=== PATIENT | female | born 1970 | race Caucasian/White ===

== ENCOUNTER → 2021-02-03 10:07 | Outpatient (BNVA) | payer MEDICARE, SELFPAY | PROVIDERS: PCP Internal Medicine; Visit Provider Internal Medicine Rheumatology | DX: M06.041 Rheumatoid arthritis without rheumatoid factor, right hand (principal); M06.042 Rheumatoid arthritis without rheumatoid factor, left hand; M15.9 Polyosteoarthritis, unspecified; Z79.899 Other long term (current) drug therapy; Z11.59 Encounter for screening for other viral diseases; Z11.1 Encounter for screening for respiratory tuberculosis; E11.42 Type 2 diabetes mellitus with diabetic polyneuropathy; Z79.84 Long term (current) use of oral hypoglycemic drugs | CPT/HCPCS: 99214 ==

== ENCOUNTER 2021-02-03 12:22 | Outpatient (CLI) | payer MEDICARE, OTHER, SELFPAY ==
--- NOTE | 2021-02-03 12:38 | XR_ITS ---
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 Minimal degenerative changes in the IP joints as well as the first and fifth MP joints. Normal soft tissues. Anterior and posterior heel spurs. XR/XR foot LT min 3V* 31684 IMPRESSION: 1. Minimal degenerative changes. No fracture or other significant finding.
--- NOTE | 2021-02-03 12:38 | XR_ITS ---
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 There are mild degenerative changes in the IP joints. No sign of th e cortical erosion or periarticular demineralization. Normal soft tissues. XR/XR hand RT min 3V* 13942 IMPRESSION: 1. Mild degenerative changes in the IP joints. 2. No fracture or other significant finding.
--- NOTE | 2021-02-03 12:38 | XR_ITS ---
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 Degenerative changes in the IP joints and first MP joint. Normal soft tis sues. Plantar heel spur. XR/XR foot RT min 3V* 82065 IMPRESSION: 1. Mild degenerative changes. No fracture or other significant finding.
--- NOTE | 2021-02-03 12:38 | XR_ITS ---
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 Degenerative narrowing of the IP joints. Normal soft tissues. No sign of the cortical erosion or periarticular demineralization. XR/XR hand LT min 3V* 71468 IMPRESSION: 1. Degenerative changes in the IP joints. 2. No fracture or other significant finding.
[2021-02-03 13:31] LABS: Basophils % 0.7 %; Eosinophils # 0.1 10^3/uL (0.0-0.8); Eosinophils % 2.4 %; Hematocrit 40.4 % (37.0-47.0); Hemoglobin 12.8 g/dL (11.5-15.3); Lymphocytes # 1.3 10^3/uL (0.8-4.8); Lymphocytes % 21.4 %; Mean Corpuscular HGB Conc 31.7 g/dL (30.0-36.0); Mean Corpuscular Hemoglobin 27.5 pg (28.0-34.0); Mean Corpuscular Volume 86.7 fL (81-99); Mean Platelet Volume 10.9 fL (7.4-10.4); Monocytes # 0.4 10^3/uL (0.2-0.9); Monocytes % 6.2 %; Neutrophils % 69.1 %; Nucleated Red Blood Cells % 0 %; Platelet Count 282 10^3/cmm (130-400); Red Blood Count 4.66 10^6/uL (4.1-5.3); Red Cell Distribution Width 13.5 % (12.1-15.1); White Blood Count 5.9 10^3/uL (4.0-10.0)
[2021-02-03 13:59] LABS: Alanine Aminotransferase 18 U/L (0-33); Albumin Level 4.4 g/dL (3.5-5.2); Alkaline Phosphatase 84 IU/L (35-105); Aspartate Amino Transferase 21 U/L (0-32); C Reactive Protein 2.9 mg/L (0.0-4.9); Glomerular Filtration Rate 65.5 mL/min (90-130); Total Bilirubin 0.2 mg/dL (0.15-1.2); Total Protein 7.4 g/dL (6.6-8.7)
[2021-02-03 14:14] LABS: 25 Hydroxy Vitamin D 15 ng/mL (30-100)
[2021-02-03 14:34] LABS: Erythrocyte Sedimentation Rate 23 mm/hr (0-15)
[2021-02-03 14:39] LABS: Hepatitis B Core AB, Total Non-Reactive (Nonreactive); Hepatitis B Surface Antigen Non-Reactive (Nonreactive); Hepatitis C Virus Antibody Non-Reactive (Nonreactive)
[2021-02-04 11:43] LABS: COMPLEMENT COMPONENT C3C 160 mg/dL (83-193); COMPLEMENT COMPONENT C4C 34 mg/dL (15-57)
[2021-02-04 12:17] LABS: COMPLEMENT, TOTAL (CH50) >60 U/mL (31-60)
[2021-02-04 13:58] LABS: Cyclic Citrullinated Peptide <16 UNITS
[2021-02-04 14:27] LABS: THYROID PEROXIDASE ANTIBODIES 159 IU/mL (<9)
[2021-02-04 15:03] LABS: CENTROMERE B ANTIBODY <1.0 NEG AI (<1.0 NEG); JO-1 ANTIBODY <1.0 NEG AI (<1.0 NEG); RNP ANTIBODY <1.0 NEG AI (<1.0 NEG); SCL-70 ANTIBODY <1.0 NEG AI (<1.0 NEG); SJOGREN'S ANTIBODY (SS-A) <1.0 NEG AI (<1.0 NEG); SM ANTIBODY <1.0 NEG AI (<1.0 NEG); SS-B <1.0 NEG AI (<1.0 NEG)
[2021-02-05 13:08] LABS: Quantiferon Mitogen 8.81 IU/mL; Quantiferon Nil 0.01 IU/mL; Quantiferon TB Gold NEGATIVE (NEGATIVE)
[2021-02-08 10:43] LABS: ANA PATTERN Nuclear, Homogeneous; ANA SCREEN, IFA POSITIVE (NEGATIVE)
[2021-02-10 00:23] LABS: DNA AB (DS) CRITHIDIA,IFA NEGATIVE (NEGATIVE)
[2021-02-10 18:12] LABS: HLA-B27 POSITIVE (NEGATIVE)
== END 2021-02-03 12:23 | disposition home or self-care (01) ==
PROVIDERS: PCP Internal Medicine; Visit Provider Internal Medicine Rheumatology
DX: M06.9 Rheumatoid arthritis, unspecified (principal); Z79.899 Other long term (current) drug therapy; Z11.59 Encounter for screening for other viral diseases; M45.9 Ankylosing spondylitis of unspecified sites in spine; R76.8 Other specified abnormal immunological findings in serum; Z11.1 Encounter for screening for respiratory tuberculosis
CPT/HCPCS: 36415; 73130; 73630; 80076; 82306; 82565; 85025; 85651; 86140; 86160; 86162; 86235; 86255; 86376; 86431; 86480; 86704; 86803; 86812; 87340

== ENCOUNTER → 2021-05-03 13:35 | Outpatient (BNVA) | payer MEDICARE, OTHER, SELFPAY | PROVIDERS: PCP Internal Medicine; Visit Provider Internal Medicine Rheumatology | DX: M19.90 Unspecified osteoarthritis, unspecified site (principal); M54.89 Other dorsalgia; Z15.89 Genetic susceptibility to other disease; Z71.89 Other specified counseling; Z79.899 Other long term (current) drug therapy; M54.9 Dorsalgia, unspecified | CPT/HCPCS: 72170; 99214 ==

== ENCOUNTER 2021-05-03 15:06 | Outpatient (CLI) | payer MEDICARE, OTHER, SELFPAY ==
--- NOTE | 2021-05-03 15:14 | XR_ITS ---
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 The SI joints are open. The hips are intact. Small scattered pelvic calci fications noted probably phleboliths. XR/XR pelvis 1-2V* 09617 IMPRESSION: 1. Unremarkable pelvis.
== END 2021-05-03 15:07 | disposition home or self-care (01) ==
PROVIDERS: PCP Internal Medicine; Visit Provider Internal Medicine Rheumatology
DX: M54.9 Dorsalgia, unspecified (principal); Z15.89 Genetic susceptibility to other disease
CPT/HCPCS: 72170